=== PATIENT | female | born 1960 | race Caucasian/White ===

== ENCOUNTER 2024-12-09 09:42 | Emergency (ER) | payer BC, SELFPAY ==
[2024-12-09 09:44] VITALS: BP 203/103
[2024-12-09 10:04] VITALS: BMI 39.0
--- NOTE | 2024-12-09 10:27 | ED.GENMED ---
History of Present Illness
General
Chief Complaint: Eye Problems
Source: patient
Exam Limitations: none
Time Seen by Provider: 12/09/24 10:13
Nursing documentation reviewed up to this point in time: agreed with
History of Present Illness
History of Present Illness:
64 yo female w ho GERD, prediabetes, started Monjaro 2 weeks ago is here for visual change. Sitting at her desk at 8:30 this a.m. working on dual screen computer, noted every time she turns her head to the right she sees a a split second of
crescent shaped flashing light that also occurs at times when she brings her head back to midline looking straight ahead. Denies any other visual changes. Denies h/a, n/v.
Past History
Past History
ED Past Medical History: GERD
ED Past Surgical History: Gynecological
Social History
Tobacco: Non-smoker
Alcohol: Occasional
Living: with family
Employment: Employed
Review of Systems
Review of Systems
Allergies reviewed?: Yes
All Other Systems: ROS reviewed and negative except as documented in HPI and ROS
Constitutional: Denies fever
EENT: Reports other (crescent flash of light right lateral visual field with turning head to right. )
ABD/GI: Denies nausea
Musculoskeletal: Denies neck pain
Skin: Reports no symptoms
Neurological: Denies dizzy, headache, weakness or numbness
Phy Exam
Physical Exam
Physical Exam:
GENERAL: No acute distress. A&Ox3.
CONSTITUTIONAL: Afebrile.
EYES: clear, conjunctivae normal, PERRL, EOMs intact. good red reflex bilaterally. Visual vazquez intact.
ENMT: moist mucus membranes, Pharynx nl
RESPIRATORY: Regular respirations, nonlabored, lungs clear.
CARDIOVASCULAR: Regular rate and rhythm, no murmurs, no rubs.
MUSCULOSKELETAL: Moves with ease. Well perfused.
SKIN: Warm, dry, pink
PSYCH: Normal mood and affect. Well kept, interactive and appropriate
NEUROLOGIC: Awake, alert and oriented. No focal neurological deficits
Course
Vital Signs
Initial and Last Documented VS:
Initial Vital Signs
Temp Pulse Resp BP Pulse Ox
98.3 F 89 18 203/103 98
12/09/24 09:44 12/09/24 09:44 12/09/24 09:44 12/09/24 09:44 12/09/24 09:44
Last Documented Vital Signs
Temp Pulse Resp BP Pulse Ox
98.3 F 80 18 161/95 99
12/09/24 09:44 12/09/24 11:14 12/09/24 11:14 12/09/24 11:14 12/09/24 11:14
MDM/Problems Addressed
Differential Diagnosis Includes:
detached retina, vitreous detachment, ocular migraine, TIA
MDM/Problems Addressed:
64 yo female w piyush GERD, prediabetes, started Monjaro 2 weeks ago is here for visual change. Sitting at her desk at 8:30 this a.m. working on dual screen computer, noted every time she turns her head to the right she sees a a split second of
crescent shaped flashing light that also occurs at times when she brings her head back to midline looking straight ahead. Denies any other visual changes. Denies h/a, n/v.
NAD
No neuro symptoms or loss of vision to suggest TIA
Visual acuity normal
Continues to experience symptoms when turning head to right and back
Consulted Dr. Dowling, ophthalmology
11:15 a.m.
BP much improved. Pt admits to being nervous
Unable to get through to Dr. Dowling's office
Called pt's aquatics assistant department head in [facility]. They will not see her as they 'don't do retinal detachments' referred pt to [facility] specialist
Called [facility] and Anjelica told me since it was a POSSIBLE detached retina, she should go to her primary aquatics assistant department head, told they would not see her, recommended to send her to [facility].
Pt does not want to go to [facility]. She will physically go to [facility] office, explain that I spoke with Dr. Dowling and make appointment. I gave pt my number to call me and let me know how she makes out
1:00 p.m.;
Pt called to inform me she is headed to [facility] as she went to [facility] and they were closed for lunch.
*Critical Care Note
Total Time (30-74mins, 75-104mins- exclusive of procedures): Not Applicable
ED Attending Note
-
Portions of this chart may have been created with voice recognition software.� Occasional wrong word or��sound alike� substitutions may have occurred due to the inherent limitations of voice recognition software.
Discharge Plan
Departure
Patient Disposition: Home (Routine Discharge)
Date of Disposition: 12/09/24
Time of Disposition: 11:08
Patient with high blood pressure during this ER visit?: Yes
Condition: Good
Discharge Problem:
Vision changes
Instructions: Detached retina, Retinal Detachment Repair, Eyestrain
Referrals:
Zofia Dowling MD [Active] - Next open appointment
Chandan Macedo DO [Family Provider] -
Activity Restrictions/Additional Instructions:
As we discussed, call the eye doctor office today and make an appointment
I did speak with the aquatics assistant department head Dr. Dowling who said she would get you in and someone will call you.
Return here immediately for loss of vision, worsening symptoms or anything that concerns you
Interventions
Interventions:
*Risk Screen - Suicide Last Done: 12/09/24 09:44
*General Assessment Last Done: 12/09/24 09:44
*Neglect/Abuse Screening Last Done: 12/09/24 09:44
*ED COVID-19 Vaccine History Last Done: 12/09/24 09:44
*Nursing Disposition Last Done: 12/09/24 11:18
Discharge Date and Time
Discharge Date/Time: 12/09/24 11:49
Print Language: KHMER
[2024-12-09 11:14] VITALS: BP 161/95
== END 2024-12-09 11:49 | disposition home or self-care (01) ==
LOC: EMR 09:42
PROVIDERS: EMERGENCY PHYSICIAN Student in an Organized Health Care Education/Training Program; FAMILY PHYSICIAN Family Medicine; REFERRING PHYSICIAN Internal Medicine
DX: H53.8 Other visual disturbances (principal); K21.9 Gastro-esophageal reflux disease without esophagitis; R73.03 Prediabetes
CPT/HCPCS: 99282

== ENCOUNTER 2025-06-30 20:44 | Emergency (ER) | payer OTHER, SELFPAY ==
[2025-06-30 20:45] VITALS: BP 172/108
[2025-06-30 22:40] VITALS: BP 112/76
[2025-06-30] MEDS: DECADRON 10 MG PO (23:25)
[2025-07-01] MEDS: PEPCID 40 MG PO (00:08)
--- NOTE | 2025-07-01 00:27 | ED.GENMED ---
History of Present Illness
General
Chief Complaint: Allergic Reaction
Source: patient
Exam Limitations: none
Time Seen by Provider: 06/30/25 23:04
Nursing documentation reviewed up to this point in time: agreed with
History of Present Illness
History of Present Illness:
64-year-old female past medical history of GERD presenting to the emergency department today with concerns of sporadic hives throughout the day today very itchy denies any trouble swallowing or breathing. No chest pain shortness of breath.
Past History
Past History
ED Past Medical History: GERD
ED Past Surgical History: Gynecological
Social History
Tobacco: Non-smoker
Alcohol: Occasional
Living: with family
Employment: Employed
Review of Systems
Review of Systems
Allergies reviewed?: Yes
All Other Systems: ROS reviewed and negative except as documented in HPI and ROS
Phy Exam
Physical Exam
Physical Exam:
GENERAL: Alert , in no apparent distress
EYE: pupils equal and reactive
NECK: Supple, no significant adenopathy.
ENT: o/p clr, mmm.
CARDIAC: Regular rate and rhythm .
LUNGS: Clear breath sounds bilaterally, no acute respiratory distress, no wheezes/rales/rhonchi
ABDOMEN: Soft, without focal tenderness, no r/g, no cvat
NEUROLOGICAL: Alert and oriented, no focal neuro deficits
SKIN: Scattered raised wheals throughout the abdomen upper extremities and thighs. No tenderness warm and dry, skin intact.
MUSCULOSKELETAL: No edema, well perfused.
PSYCH: Normal and appropriate interaction.
Course
Orders/Labs/Results
Orders:
Orders
06/30/25 23:18
Dexamethasone [Decadron] 10 mg PO NOW STA
06/30/25 23:51
Famotidine [Pepcid] 40 mg PO NOW STA
07/01/25 00:14
Diphenhydramine [Benadryl] 25 mg PO NOW STA
Vital Signs
Initial and Last Documented VS:
Initial Vital Signs
Temp Pulse Resp BP Pulse Ox
98.2 F 101 15 172/108 97
06/30/25 20:45 06/30/25 20:45 06/30/25 20:45 06/30/25 20:45 06/30/25 20:45
Last Documented Vital Signs
Temp Pulse Resp BP Pulse Ox
98.2 F 82 15 112/76 99
06/30/25 20:45 06/30/25 22:00 06/30/25 20:45 06/30/25 22:40 07/01/25 00:30
MDM/Problems Addressed
MDM/Problems Addressed:
64-year-old female presenting with concerns of scattered hives. Appears to be consistent with allergic reaction unclear the cause. She did have pizza tonight with no known allergens she also is on the steroid for nasal congestion. She was given
dose of dexamethasone as well as Benadryl here. No progression of hives here no involvement of mucous membranes or any symptoms consistent with anaphylaxis. Patient appears stable for discharge at this time. Return precautions given.
*Pulse Oximetry
SaO2: 99
Oxygen Mode of Delivery: Room air
Patient hypoxic: no (99)
*Critical Care Note
Total Time (30-74mins, 75-104mins- exclusive of procedures): Not Applicable
ED Attending Note
-
Portions of this chart may have been created with voice recognition software.� Occasional wrong word or��sound alike� substitutions may have occurred due to the inherent limitations of voice recognition software.
Discharge Plan
Departure
Patient Disposition: Home (Routine Discharge)
Date of Disposition: 07/01/25
Time of Disposition: 00:58
Patient with high blood pressure during this ER visit?: No
Condition: Good
Covid-19: Not Applicable
Discharge Problem:
Hives
Instructions: Hives (DC)
Prescriptions:
New
dexamethasone 4 mg tablet
8 mg PO DAILY 3 Days Qty: 6 0RF
famotidine 20 mg tablet
20 mg PO BID 4 Days Qty: 8 0RF
epinephrine [Auvi-Q] 0.3 mg/0.3 mL auto-injector
0.3 mg IM Q5-15M PRN (Reason: anaphylaxis) Qty: 2 0RF
Referrals:
Nette Strong MD [Family Provider, Family Practice]
Activity Restrictions/Additional Instructions:
You came to the emergency department today with concerns of allergic reaction. Please take the prescribed medications and follow-up close with your primary care doctor within the next few days for reassessment. Return for any worsening, new or
concerning symptoms.
Interventions
Interventions:
*Risk Screen - Suicide Last Done: 06/30/25 20:45
*General Assessment Last Done: 06/30/25 20:45
*Neglect/Abuse Screening Last Done: 06/30/25 20:45
*ED COVID-19 Vaccine History Last Done: 06/30/25 20:45
*ED Influenza Vaccine History Last Done: 06/30/25 20:45
ED- Cardiac Assessment Last Done: 06/30/25 22:47
ED- Pulmonary Assessment Last Done: 06/30/25 22:47
ED-Skin Assessment Last Done: 06/30/25 22:47
Discharge Date and Time
Print Language: BELARUSIAN
[2025-07-01] MEDS: BENADRYL 25 MG PO (00:28)
[2025-07-01 01:13] VITALS: BP 115/70
== END 2025-07-01 01:14 | disposition home or self-care (01) ==
LOC: EMR 20:44
PROVIDERS: EMERGENCY PHYSICIAN Emergency Medicine; FAMILY PHYSICIAN Family Medicine
DX: L50.9 Urticaria, unspecified (principal); K21.9 Gastro-esophageal reflux disease without esophagitis
CPT/HCPCS: 99283